=== PATIENT | female | born 1955 | race Caucasian/White ===

== ENCOUNTER 2019-06-11 20:00 | Emergency (ER) | payer OTHER ==
[2019-06-11 20:21] VITALS: BP 140/64; PULSE 66; TEMP 98.7; BMI 27.5
[2019-06-11] MEDS ORDERED: IBUPROFEN 600 MG TABLET (FP) PO ONE ×2 (21:01→21:02)
--- NOTE | 2019-06-11 21:15 | PDOC ---
Documentation entered by Mariola Hart SCRIBE, acting as scribe for Karissa Whitley MD. Karissa Wihtley MD: This documentation has been prepared by the Tanner villalta Lincy, SCRIBE, under my direction and personally reviewed by me in its entirety. I confirm that the documentation accurately reflects all work, treatment, procedures, and medical decision making performed by me. History of Present Illness - General Chief Complaint: Redness To Affected Area Stated Complaint: BREAST PAIN & REDNESS History Source: Patient Exam Limitations: No Limitations - History of Present Illness Initial Comments: 06/11/19 20:50 The patient is a 63-year-old female with a past medical history significant for Afib and HLD, who presents to the emergency department with R. breast redness with swelling and pain. The patient presents with a 1-week history of right breast redness, associated with swelling and pain. The patient reports that the pain is felt with palpation of the breast. The patient reports throughout the week the redness and swelling have been progressively worsening. The patient reports discussing the symptoms with Dr. Kelly, who scheduled the patient for a mammogram 2 weeks from today. However, the symptoms have been worsening, and she was referred by Dr. Kelly to follow up. Denies fever, chills, chest pain, or shortness of breath. Denies nipple discharge. Denies itching. Denies prior breast surgery or biopsies. The patient reports her last mammogram was last year , denies any abnormal results. Allergies: NK[employer] PROFESSOR: Dr. Kelly ([facility]) Past History - Past Medical History Allergies/Adverse Reactions: Allergies Allergy/AdvReac Type Severity Reaction Status Date / Time No Known Allergies Allergy Verified 06/11/19 20:11 Home Medications: Ambulatory Orders Aspirin Coated [Ecotrin -] 81 mg PO DAILY 06/11/19 Atorvastatin Ca [Lipitor] 10 mg PO Q48H 06/11/19 Ibuprofen [Motrin -] 600 mg PO TID PRN #30 tablet 06/11/19 Metoprolol Succinate [Toprol Xl] 25 mg PO DAILY 06/11/19 Propafenone HCl [Rythmol Sr] 325 mg PO BID 06/11/19 Sulfamethoxazole/Trimethoprim [Bactrim Ds -] 1 tab PO BID #14 tablet 06/11/19 Review of Systems - Review of Systems Able to Perform ROS?: Yes Comments:: 06/11/19 20:50 GENERAL/CONSTITUTIONAL: No fever or chills. No weakness. HEAD, EYES, EARS, NOSE AND THROAT: No change in vision. No ear pain or discharge. No sore throat. CARDIOVASCULAR: No chest pain or shortness of breath. RESPIRATORY: No cough, wheezing, or hemoptysis. GASTROINTESTINAL: No nausea, vomiting, diarrhea or constipation. GENITOURINARY: No dysuria, frequency, or change in urination. MUSCULOSKELETAL: No joint or muscle swelling or pain. No neck or back pain. SKIN: +right breast redness, with swelling and pain. No other rash NEUROLOGIC: No headache, vertigo, loss of consciousness, or change in strength/ sensation. ENDOCRINE: No increased thirst. No abnormal weight change. HEMATOLOGIC/LYMPHATIC: No anemia, easy bleeding, or history of blood clots. ALLERGIC/IMMUNOLOGIC: No hives or skin allergy. *Physical Exam - Vital Signs Last Vital Signs Temp Pulse Resp BP Pulse Ox 98.7 F 66 16 140/64 98 06/11/19 20:08 06/11/19 20:08 06/11/19 20:08 06/11/19 20:08 06/11/19 20:08 - Physical Exam Comments: 06/11/19 21:09 awake alert lungs clear bilaterally heart rrr no mrg abd soft nt nd ext wwp right breast with erythema, noted to inferior half of the breast. noted to have indurated area near medial side, lateral to areola around 3 oclock position measuring about 1 x 1 inches. no palp fluctance. left breast no skin changes noted, no palp masses. no expressible nipple discharge from either breast. ED Treatment Course - LABORATORY CBC & Chemistry Diagram: 06/11/19 21:50 06/11/19 21:50 - RADIOLOGY Radiology Studies Ordered: Category Date Time Status BREAST US RIGHT LIMITED [US] Stat Ultrasound 06/11/19 20:47 Ordered - Medications Given in the ED: ED Medications Discontinued Medications Generic Name Dose Route Start Last Admin Trade Name Freq PRN Reason Stop Dose Admin Ibuprofen 600 mg 06/11/19 21:01 06/11/19 21:03 Motrin - PO 06/11/19 21:02 600 mg ONCE ONE Administration Medical Decision Making - Medical Decision Making 06/11/19 21:13 plan breast us to r/o abscess. will treat for cellulitis, however extensive discussion wt patient regarding need for dedicated breast us to r/o CA . has appointment scheduled for 2 weeks from today. told to call to see if she can advance her appointment. will give prescription for bactrim DS twice daily for 8 days. motrin for pain. Discharge - Discharge Information Problems reviewed: Yes Clinical Impression/Diagnosis: Breast skin changes Condition: Good Disposition: HOME - Admission No - Additional Discharge Information Prescriptions: Sulfamethoxazole/Trimethoprim [Bactrim Ds -] 1 tab PO BID #14 tablet - Follow up/Referral Referrals: Juan Daniel Rivas [Primary Care Provider] - Hubert Booker MD [Staff Physician] - Calli Muniz MD [Staff Physician] - - Patient Discharge Instructions Patient Printed Discharge Instructions: How to Perform a Breast Self- examination, DI for Breast Cyst, Cellulitis Additional Instructions: you should take bactrim twice daily for one week. you can take ibuprofen 600 mg every 8 hr as needed for pain. or you can take tylenol 500 mg every 6 hours for your pain. it is very important you follow up for a complete breast ultrasound and mammogram as this was a focused ultrasound you had today. you need to also follow up with a breast surgeon for evaluation of the breast. see referral for DR Gutierrze or Dr Booker, call to schedule a consult. make sure to tell them you are having changes in your breast skin. you should also follow up with your manager fitness. return for any concerns, shortness of breath, fever, worsening symptoms or any concerns. - Post Discharge Activity
[2019-06-11] MEDS ORDERED: SULFAMETHOXAZOLE/TRIMETHOPRIM 800MG/160MG D.S. TABLET PO ONE (21:29)
[2019-06-11] MEDS ORDERED: SULFAMETHOXAZOLE/TRIMETHOPRIM 800MG/160MG D.S. TABLET ONE (21:31)
[2019-06-11 21:56] LABS: BASO % 0.4 % (0-2.0); HEMOGLOBIN 12.3 GM/dl (10.7-15.3); LYMPH % 33.1 % (8-40); MCH 28.9 pg (25.7-33.7); MCHC 33.1 g/dl (32.0-36.0); MEAN CELL VOLUME 87.2 fl (80-96); MEAN PLT VOLUME 8.6 fl (7.5-11.1); MONO % 7.6 % (3.8-10.2); NEUT % 58.9 % (42.8-82.8); PLATELET COUNT 237 K/MM3 (134-434); RBC 4.24 M/mm3 (3.60-5.2); RDW 11.9 % (11.6-15.6); WHITE BLOOD COUNT 7.5 K/mm3 (4.0-10.8)
[2019-06-11 22:12] LABS: ALBUMIN 4.1 g/dl (3.4-5.0); BILIRUBIN,TOTAL 0.7 mg/dl (0.2-1); CALCIUM 8.7 mg/dl (8.5-10); CREATININE 0.8 mg/dl (0.55-1.3); POTASSIUM 3.8 mmol/L (3.5-5.1); TOT PROT 6.9 g/dl (6.4-8.2)
== END 2019-06-11 22:47 | disposition home or self-care (01) ==
LOC: SUPCPDRO 20:00 → FER 20:00
DX: I48.91 Unspecified atrial fibrillation (principal); E78.5 Hyperlipidemia, unspecified
CPT/HCPCS: 36415; 76642-TC-RT; 80053; 85025; 99282-25

== ENCOUNTER → 2020-08-04 | Day surgery (SDC) | payer OTHER | END | disposition home or self-care (01) | LOC: FMAMMOTONE 10:11 | PROVIDERS: ATTEND Surgery Surgical Oncology | PROC: 0HBU3ZX Excision of Left Breast, Percutaneous Approach, Diagnostic (ICD-10-PCS; principal; 2020-08-04) | DX: C50.812 Malignant neoplasm of overlapping sites of left female breast (principal); Z17.0 Estrogen receptor positive status [ER+]; R92.2 Inconclusive mammogram | CPT/HCPCS: 19081; 88305-TC; 88341-TC; 88342-TC; A4648 ==

== ENCOUNTER 2020-10-26 21:40 | Emergency (ER) | payer OTHER ==
[2020-10-26 22:07] VITALS: TEMP 99.3; BMI 24.7
[2020-10-26] MEDS ORDERED: LACTATED RINGERS SOLUTION 1,000 ML/1,000 ML INFUS.BAG IV STA (22:21)
[2020-10-26] MEDS ORDERED: ONDANSETRON 4 MG/2 ML VIAL IVPUSH ONE (22:21)
[2020-10-26] MEDS ORDERED: FAMOTIDINE 20 MG/50 ML IVPB 20 MG/50 ML MG IVPB ONE ×2 (22:21→22:24)
[2020-10-26] MEDS ORDERED: ONDANSETRON 4 MG/2 ML VIAL ONE (22:23)
[2020-10-27] MEDS ORDERED: ACETAMINOPHEN 325 MG TABLET (FP) PO ONE (01:10)
[2020-10-27] MEDS ORDERED: ACETAMINOPHEN 325 MG TABLET (FP) ONE (01:14)
[2020-10-27 02:28] LABS: BASO % 0.3 % (0-2.0); EOS % 0.1 % (0-4.5); HEMATOCRIT 36.2 % (32.4-45.2); HEMOGLOBIN 12.1 GM/dL (10.7-15.3); LYMPH % 34.1 % (8-40); MCH 28.9 pg (25.7-33.7); MCHC 33.3 g/dl (32.0-36.0); MEAN CELL VOLUME 86.9 fl (80-96); MEAN PLT VOLUME 9.7 fl (7.5-11.1); MONO % 6.5 % (3.8-10.2); PLATELET COUNT 208 K/MM3 (134-434); RBC 4.17 M/mm3 (3.60-5.2); RDW 12.7 % (11.6-15.6); WHITE BLOOD COUNT 11.1 K/mm3 (4.0-10.0)
[2020-10-27 02:48] VITALS: BP 155/70; PULSE 88
[2020-10-27 03:15] LABS: CHLORIDE 105 mmol/L (98-107); POTASSIUM 4.3 mmol/L (3.5-5.1); SODIUM 142 mmol/L (136-145)
[2020-10-27 03:17] LABS: ALBUMIN 3.7 g/dl (3.4-5.0); ANION GAP 7 MMOL/L (8-16); BLOOD UREA NITROGEN 17.4 mg/dL (7-18); CO2 30 mmol/L (21-32); GLUCOSE,RANDOM 101 mg/dL (74-106)
[2020-10-27 03:20] LABS: CREATININE 0.8 mg/dL (0.55-1.3); SGOT/AST 13 U/L (15-37); SGPT/ALT 24 U/L (13-61)
[2020-10-27 03:22] LABS: BILIRUBIN,TOTAL 0.2 mg/dL (0.2-1); TOT PROT 6.7 g/dl (6.4-8.2)
[2020-10-27 03:23] LABS: ALK PHOS 66 U/L (45-117)
== END 2020-10-27 03:36 | disposition home or self-care (01) ==
LOC: FER 21:40
PROC: 3E033NZ Introduction of Analgesics, Hypnotics, Sedatives into Peripheral Vein, Percutaneous Approach (ICD-10-PCS; principal; 2020-10-26)
PROC: 3E033GC Introduction of Other Therapeutic Substance into Peripheral Vein, Percutaneous Approach (ICD-10-PCS; 2020-10-26)
PROC: 3E0337Z Introduction of Electrolytic and Water Balance Substance into Peripheral Vein, Percutaneous Approach (ICD-10-PCS; 2020-10-26)
DX: R42 Dizziness and giddiness (principal)
CPT/HCPCS: 36415; 71046-TC-FY; 80053; 84484; 85025; 93005; 99285-25

== ENCOUNTER 2021-08-23 15:17 | Emergency (ER) | payer OTHER ==
[2021-08-23 16:08] VITALS: TEMP 100; BMI 27.4
[2021-08-23] MEDS ORDERED: ACETAMINOPHEN 325 MG TABLET (FP) PO ONE (16:45)
[2021-08-23] MEDS ORDERED: SODIUM CHLORIDE 0.9% 500 ML INFUS.BAG IV ONE (16:45)
[2021-08-23] MEDS ORDERED: ACETAMINOPHEN 325 MG TABLET (FP) ONE (16:55)
[2021-08-23] MEDS ORDERED: ONDANSETRON 4 MG/2 ML VIAL IVPUSH ONE (18:08)
[2021-08-23] MEDS ORDERED: ONDANSETRON 4 MG/2 ML VIAL ONE (18:09)
[2021-08-23 18:14] LABS: BASO % 0.2 % (0-2.0); HEMOGLOBIN 12.1 GM/dL (10.7-15.3); LYMPH % 16.9 % (8-40); MCH 28.8 pg (25.7-33.7); MCHC 33.7 g/dl (32.0-36.0); MEAN CELL VOLUME 85.4 fl (80-96); MEAN PLT VOLUME 8.6 fl (7.5-11.1); MONO % 7.2 % (3.8-10.2); NEUT % 75.7 % (42.8-82.8); PLATELET COUNT 128 10^3/uL (134-434); RBC 4.22 M/mm3 (3.60-5.2); RDW 12.5 % (11.6-15.6); WHITE BLOOD COUNT 5.8 K/mm3 (4.0-10.0)
[2021-08-23 18:15] LABS: EPI CELLS 6 /uL (0-25.1); HYALINE CASTS 1 /uL (0-3.1); URINE APPEARANCE CLEAR; URINE BACTERIA 97 /uL (0-1359); URINE BILIRUBIN NEGATIVE (NEGATIVE); URINE COLOR YELLOW; URINE GLUCOSE (UA) NEGATIVE (NEGATIVE); URINE KETONE NEGATIVE (NEGATIVE); URINE LEUK ESTERASE NEGATIVE (NEGATIVE); URINE NITRITE NEGATIVE (NEGATIVE); URINE PROTEIN NEGATIVE (NEGATIVE); URINE RBC 53 /uL (0-23.9); URINE UROBILINOGEN 0.2 mg/dL (0.2-1.0); URINE WBC 3 /uL (0-25.8)
[2021-08-23 18:38] LABS: CHLORIDE 107 mmol/L (98-107); SODIUM 141 mmol/L (136-145)
[2021-08-23 18:40] LABS: ALBUMIN 3.1 g/dl (3.4-5.0); ANION GAP 8 MMOL/L (8-16); CALCIUM 7.9 mg/dL (8.5-10.1); CO2 26 mmol/L (21-32); GLUCOSE,RANDOM 102 mg/dL (74-106)
[2021-08-23 18:43] LABS: CREATININE 0.7 mg/dL (0.55-1.3); SGPT/ALT 33 U/L (13-61)
[2021-08-23 18:44] LABS: SGOT/AST 24 U/L (15-37)
[2021-08-23 18:45] LABS: BILIRUBIN,TOTAL 0.3 mg/dL (0.2-1); TOT PROT 6.3 g/dl (6.4-8.2)
[2021-08-23 18:46] LABS: ALK PHOS 69 U/L (45-117)
[2021-08-23 19:22] VITALS: BP 115/52; PULSE 80
[2021-08-25 02:07] LABS: SARS-CoV-2 NAA Detected (Not Detected)
== END 2021-08-23 19:25 | disposition home or self-care (01) ==
LOC: JER 15:17
DX: U07.1 COVID-19 (principal); R19.7 Diarrhea, unspecified; R55 Syncope and collapse
CPT/HCPCS: 36415; 71045-TC-FY; 80053; 81003; 84484; 85025; 87086; 87804; 93005; 93010; 99285-25; C9803-CS; U0003; U0005

== ENCOUNTER 2021-08-24 07:24 | Emergency (ER) | payer OTHER ==
[2021-08-24 07:51] VITALS: PULSE 94; BMI 27.3
[2021-08-24] MEDS ORDERED: ONDANSETRON *ODT* 4 MG TABLET SL ONE (08:21)
[2021-08-24] MEDS ORDERED: ACETAMINOPHEN 325 MG TABLET (FP) PO ONE (08:21)
[2021-08-24] MEDS ORDERED: IBUPROFEN 400 MG TABLET (FP) PO ONE ×2 (08:22→08:26)
[2021-08-24] MEDS ORDERED: ACETAMINOPHEN 325 MG TABLET (FP) ONE (08:25)
[2021-08-24] MEDS ORDERED: ONDANSETRON *ODT* 4 MG TABLET ONE (08:25)
[2021-08-24 09:56] VITALS: TEMP 98.7
[2021-08-24 10:43] VITALS: BP 102/50
== END 2021-08-24 10:41 | disposition home or self-care (01) ==
LOC: JER 07:24
DX: R11.2 Nausea with vomiting, unspecified (principal); Z11.52 Encounter for screening for COVID-19
CPT/HCPCS: 93005; 93010; 99283-25; Q0162